=== PATIENT | female | born 1940 | race Caucasian/White ===

== ENCOUNTER → 2018-10-24 13:46 | Outpatient (CLI) | payer OTHER, SELFPAY | PROVIDERS: PCP Family Medicine; Visit Provider Family Medicine | DX: G56.21 Lesion of ulnar nerve, right upper limb (principal) | CPT/HCPCS: 95885; 95886; 95909 ==

== ENCOUNTER → 2019-07-08 12:35 | Outpatient (CLI) | payer MEDICARE, OTHER, SELFPAY ==
--- NOTE | 2019-07-08 | DI.MRI.S_ITS ---
PROCEDURE: MR CERVICAL SPINE WO/W CON INDICATIONS: CERVICALGIA TECHNIQUE: Noncontrast sagittal T1 spin echo and T2 fast spin echo, sagittal STIR, foraminal oblique sagittal T2 fast spin echo, axial gradient echo or T2 fast spin echo through the cervical spine. After the administration of contrast, axial and sagittal T1 spin echo with fat saturation through the cervical spine. COMPARISON: [facility], , C-SPINE WITHOUT CONTRAST, 04/06/2016, 10:53. FINDINGS: Image quality: Diagnostic Alignment and curvature: There is normal bony alignment. Marrow: Marrow is normal in overall signal, without suspicious enhancement. Spinal cord: Visualized spinal cord has normal size and signal. No cerebellar tonsillar herniation. No abnormal intramedullary enhancement. Paraspinous soft tissues: No paravertebral masses or suspicious enhancement. C2-3: No significant abnormality is seen. C3-4: Mild loss of disc height is seen. Loss of disc signal is seen. Moderate bilateral neural foraminal narrowing is seen. Mild central canal narrowing is seen. These imaging findings have progressed compared to the prior study. C4-5: Moderate loss of disc height is seen. Loss of disc signal is seen. Moderate generalized disc osteophyte complex is seen. Uncovertebral joint hypertrophy is seen at this level. Moderate to severe bilateral neural foraminal narrowing is seen. Mild central canal narrowing is seen. C5-6: At least moderate loss of disc height and disc signal are seen. Moderate to prominent disc osteophyte complex is seen. Moderate to prominent facet hypertrophy is seen. There is at least moderate right-sided and moderate to severe left-sided neural foraminal narrowing seen. Moderate central canal narrowing is seen, with associated mass effect upon the ventral spinal cord. These imaging findings have progressed compared to the prior study. C6-7: Moderate loss of disc height is seen. Loss of disc signal is seen. Moderate generalized disc osteophyte complex is seen. Uncovertebral joint hypertrophy is seen at this level. Moderate to severe bilateral neural foraminal narrowing is seen. Moderate central canal narrowing is seen, with associated mild mass effect upon the ventral spinal cord. These imaging findings have progressed compared to the prior study. C7-T1: No significant abnormality is seen. IMPRESSION: Multiple levels of cervical spine degenerative change are seen, which have progressed compared to 2016. No abnormal enhancement can be seen. Dictated by: Yossi Long M.D. on 07/08/2019 at 14:15 Approved by: Yossi Long M.D. on 07/08/2019 at 14:21
== END ==
PROVIDERS: PCP Family Medicine; Visit Provider Orthopaedic Surgery
DX: M54.2 Cervicalgia (principal)
CPT/HCPCS: 72156; A9579

== ENCOUNTER 2019-08-14 11:01 | Day surgery (SDC) | payer MEDICARE, OTHER, SELFPAY ==
[2019-08-13 08:12] VITALS: BMI 32.5
[2019-08-14] VITALS (18 sets, daily range): BP systolic 102–154; BP diastolic 63–91; PULSE 76–93; RESP 6–97; TEMP 35.9–36.6; O2SAT 10–99; BMI 32.5
--- NOTE | 2019-08-14 | DI.RAD.S_ITS ---
PROCEDURE: XR CERVICAL SPINE 2V OR 3V INDICATIONS: C4-5, C5-6 ACDF (MOBI-C) TECHNIQUE: 2 view(s) of the cervical spine were acquired. COMPARISON: None. FINDINGS: Spot fluoroscopic images demonstrating prosthetic discs at the C4-C5 and C5-C6 levels. There is expected intraoperative alignment Dictated by: Ronnie Read M.D. on 08/14/2019 at 14:32 Approved by: Ronnie Read M.D. on 08/14/2019 at 14:34
[2019-08-14] MEDS: LACTATED RINGERS 1,000 ML 42 ML IV ×2 (11:35→13:06)
--- NOTE | 2019-08-14 11:44 | PM.PREOP ---
Pre-operative Note Interval Note History & Physical reviewed/Exam performed by Physician: Yes Changes to H&P: No
--- NOTE | 2019-08-14 11:48 | PM.OP.1 ---
Operative Date/Time/Diagnoses Date of procedure: 08/14/19 Time of procedure: 13:22 Pre-op diagnosis: cervical stenosis with myelopathy Post-op diagnosis: same Procedure & Clinicians Procedure: C4-5, C5-6 anterior diskectomy an artificial disc replacement Use of microscope Same procedure as scheduled: Yes Indications: [age] year old female with intractable pain from cervical stenosis. They had failed conservative management and requested operative intervention. Risks and benefits of surgery were discussed and appropriate consents were obtained. Surgeon: Pritesh Melendez Lasting Machine Operator: Sussy León Operative Notes Findings: None Closure Type: primary Specimen(s): none sent Prosthetic devices, grafts, tissues, transplants, or devices: Hreo Mobi-C Estimated Blood Loss (mL): 20 Blood products transfused: none Procedure in detail: Patient was brought to the operating room and intubated on the table. A time-out was performed. Preoperative antibiotics were given. The neck was prepped and draped in the standard sterile fashion. Using a skin fold, we made a 3 cm oblique incision on the left side. We used Bovie to go through the platysma and then did a standard anterolateral blunt dissection down to the precervical fascia. Fascia was nicked and elevated up. A marker was placed and x-ray was taken for localization. We then subperiosteally elevated up the longus colli muscles. Self-retaining retractors were placed. Gilman pins were placed under x-ray guidance to be parallel to the endplates. We then brought in the microscope. A scalpel used to perform an annulotomy. We then used a combination of pituitaries and curettes and Kerrison to perform a complete anterior diskectomy at C4-5. We took down the PLL and used Kerrisons to remove posterior disc material and osteophytes. At the end we could from the nerve hook cephalad caudally and out the foramen and everything was opened. She had some bleeding from epidurals in the neural foramen. This was stopped with Gelfoam and thrombin. We distracted open with the parallel pasta press operator. We then used the horseshoes for sizing. We then used the trials. We then inserted a 15 x 13 x 5 size Mobi-C artificial disc replacement under fluoroscopic guidance for positioning. The traction was released and x-ray was checked again. We removed the machine hose cutter. The Gilman pin from C4 was moved down to C6. We then performed a complete diskectomy at C5-6 with scalpel, pituitaries, Kerrisons, curettes. We took down the PLL and removed the posterior osteophytes and disc material. Everything was open when we checked with a nerve hook. We then used the horseshoes for sizing. We then used the trials. We then inserted a 15 x 13 x 5 size Mobi-C artificial disc replacement under fluoroscopic guidance for positioning. The self-retaining retractors and Gilman pins were removed and final x-rays taken. The wound was irrigated. There was no bleeding. The carotid was beating nicely. The platysma was closed. The superficial was closed. The skin was closed. A sterile dressing was placed. They were then extubated and brought to recovery room with no complications. Complications: none Post-operative Condition: stable Disposition: PACU Plan for aftercare: Inpatient overnight
[2019-08-14] MEDS: CLINDAMYCIN 900 MG/50 ML PIGGYBACK 50 MG IV ×2 (11:58→20:23)
--- NOTE | 2019-08-14 12:21 | SUR.OPER ---
Supine on padded OR bed, head on gel donut, towel between shoulders, both arms padded and tucked at side, legs uncrossed, safety belt at thigh, tape over blanket over lower legs .
[2019-08-14] MEDS: SODIUM CHLORIDE 0.9% 1,000 ML, GENTAMICIN 80 MG IRR (12:29)
[2019-08-14] MEDS: BUPIVACAINE 0.25% W/ EPI 30 ML VIAL 60 ML INJ (12:29)
[2019-08-14] MEDS: THROMBIN (RECOMBINANT) 5,000 UNIT VIAL 5000 UNIT TOP (12:29)
[2019-08-14] MEDS: HYDROMORPHONE 2 MG INJ 0.5 MG IV ×8 (13:30→14:05)
[2019-08-14] MEDS: fentaNYL 100 MCG/2 ML INJ 50 MCG IV ×2 (14:12→14:26)
[2019-08-14] MEDS: TRAMADOL 50 MG TABLET PO (14:46)
--- NOTE | 2019-08-14 15:10 | SUR.PHASEI ---
pt has repeatedly had spo2 dips to as low as 75 while sleeping. this has been for the entire recovery and has not improved with increased level of consciousness. RT will evaluate for CPAP. pt states used to use but stopped when she lost weight
[2019-08-14] MEDS: GABAPENTIN 100 MG CAPSULE PO ×2 (17:14→21:41)
[2019-08-14] MEDS: LACTATED RINGERS 1,000 ML 125 ML IV (17:20)
[2019-08-14] MEDS: DOCUSATE 100 MG CAPSULE PO (21:40)
[2019-08-14] MEDS: SENNOSIDES 8.6 MG TABLET 17.2 MG PO (21:41)
[2019-08-14] MEDS: LOSARTAN 50 MG TABLET PO (21:43)
--- NOTE | 2019-08-14 22:48 | PC.NURSE ---
A&OX3. 96% on 1.5L NC, desats to 87%. VSS. LS: clear. pt able to tolerated full liquid diet. cervical dressing cdi. pain 01/19. passing gas. SBA to the BSC. pt able to urinate 200cc, bladder scan 20cc. IVF. call light in reach. oriented pt to room.
[2019-08-15] VITALS: BP 133/74; PULSE 85; RESP 16; TEMP 36.3; O2SAT 97
[2019-08-15] MEDS: CLINDAMYCIN 900 MG/50 ML PIGGYBACK 50 MG IV (03:03)
[2019-08-15] MEDS: LACTATED RINGERS 1,000 ML 125 ML IV (03:03)
[2019-08-15 05:00] VITALS: BP 145/88; PULSE 90; RESP 16; TEMP 36.2; O2SAT 97
[2019-08-15] MEDS: HYDROCODONE/ACET 5/325 TABLET 1 TAB PO ×2 (06:05→10:58)
--- NOTE | 2019-08-15 06:13 | PC.NURSE ---
Clinical Exercise Physiologist Note: 0045: Resting in bed. Vital signs stable. Assisted up to bathroom: steady on her feet. Dressing to neck is cdi, soft collar remains on. IV in place in lt AC with LR infusing at 125cc/hr. Pt denies pain at this time. 0545: Awake, assisted up to bathroom. Denies pain at this time. 0605: Pt states her neck is hurting. Medicated for pain with 1 [place] po. Assisted to reposition for comfort.
--- NOTE | 2019-08-15 07:02 | P.PN_ITS ---
Subjective Subjective Date Patient Seen: 08/15/19 Time Patient Seen: 07:02 Interval history: She is doing very well. Started having some pain in the neck recently and this is under better control with a [place]. Exam Vital Signs (past 8 hours): - 08/15/19 00:00 08/15/19 05:00 Temperature 97.4 F L 97.2 F L Pulse Rate 85 90 Respiratory Rate 16 16 Blood Pressure 133/74 145/88 H Pulse Oximetry 97 97 Oxygen Delivery Method Nasal Cannula Oxygen Flow Rate 2 Const Orientation: alert and oriented x3 Back/Spine/Pelvis Other: CDI. 5/5 motor both upper extremities except for 4/5 right deltoid with pain Assessment & Plan Post-op Postoperative Procedures: Procedures Operation Date: 08/14/19 12:15 Actual Procedures Side Surgeon p C45 & C56 anterior discectomy and artificial disc replacement Pritesh Melendez MD She is doing well. Mobilize with therapy and discharge home today. Quality VTE Deep Vein Thrombosis/Pulmonary Embolism Present on Admission: No
[2019-08-15 07:40] VITALS: BP 141/77; PULSE 85; RESP 16; TEMP 36.7; O2SAT 97
[2019-08-15] MEDS: AMLODIPINE 5 MG TABLET PO (08:30)
[2019-08-15] MEDS: DOCUSATE 100 MG CAPSULE PO (08:30)
[2019-08-15] MEDS: GABAPENTIN 100 MG CAPSULE PO (08:30)
[2019-08-15] MEDS: LOSARTAN 50 MG TABLET PO (08:30)
[2019-08-15] MEDS: PANTOPRAZOLE 20 MG TABLET PO (08:30)
[2019-08-15] MEDS: KETOROLAC 30 MG/ML VIAL IV (08:38)
[2019-08-15 09:59] VITALS: PULSE 78; RESP 16; O2SAT 97
[2019-08-15] MEDS: TRIAMTERENE/HCTZ 37.5/25 TABLET 0.5 CAP PO (10:59)
--- NOTE | 2019-08-15 11:20 | PT.IIE ---
Current Diagnoses Spinal stenosis, cervical region (08/14/19) Surgery Performed Operation Date: 08/14/19 12:15 Actual Procedures p C45 & C56 anterior discectomy and artificial disc replacement - Pritesh Melendez MD Surgical History (Last Updated 08/13/19 @ 08:46 by Corry Santillan, RN) History of bilateral carpal tunnel release (Acute) History of bilateral knee arthroplasty (Acute) History of incisional hernia repair (Acute 10/11/17) History of lumbar fusion (Acute 10/10/16) History of partial hysterectomy (Acute) Hx of appendectomy (Acute) Hx of bilateral breast reduction surgery (Acute) Hx of bladder repair surgery (Acute) Hx of blepharoplasty (Acute) Hx of cholecystectomy (Acute) Hx of hand surgery (Acute) Hx of resection of large bowel (Acute) S/P bilateral foot surgery (Acute) Medical History (Last Updated 08/13/19 @ 08:46 by Corry Santillan RN) Asthma (Acute) Diabetes (Acute) Elbow fracture, right (Acute) First degree AV block (Acute) Flexor tenosynovitis of finger (Acute) Goiter, nodular (Acute) HLD (hyperlipidemia) (Acute) HTN (hypertension) (Acute) Hypokalemia (Acute) Hyponatremia (Acute) IBS (irritable bowel syndrome) (Acute) Left wrist fracture (Acute) Lichen sclerosus (Acute) Osteoarthritis (Acute) Osteopenia (Acute) Radicular pain in right arm (Acute) Sciatica, right side (Acute) Scleroderma (Acute) Sleep apnea (Acute) Physical Therapy Inpatient Evaluation/Re-Eval M1 PT/OT-IP Prior Functional Status Start: 08/15/19 08:26 Freq: NEEDED Status: Active Protocol: Document 08/15/19 08:40 (Rec: 08/15/19 11:20 [email or web address]) Medical Review Prior Functional Status Medical History Reviewed Yes Communication no deficits noted. Able to make needs known Mobility and Gait Independent for home and community mobility w/o AD Activities of Daily Living and IADL's independent for all ADLs and IADLs Social History Household Members spouse Living Arrangements House Number of Floors (Floors) One Floor Number of Stairs To Enter/Railing? 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 They are for 58 years. M2 PT-IP Current Condition Start: 08/15/19 08:26 Freq: NEEDED Status: Active Protocol: Document 08/15/19 08:40 HH (Rec: 08/15/19 11:20 [email or web address]) Physical Therapy Current Condition Current Condition Evaluation Date 08/15/19 Treatment Diagnosis C45 & C56 anterior discectomy and artificial disc replacement Onset Date 08/14/19 Precautions Cervical Spine Precautions Soft Collar for Comfort,Rigid Collar,No Heavy Lifting,Log Roll Weight Bearing Status Weight Bearing Status Full Weight Bearing M3 PT-IP Subjective Start: 08/15/19 08:26 Freq: NEEDED Status: Active Protocol: Document 08/15/19 08:40 HH (Rec: 08/15/19 11:20 [email or web address]) Subjective Physical Therapy Visit Type Type Initial Evaluation Visit Start Time 08:40 Visit Stop Time 09:15 Total Visit Minutes 35 Number of CHILD SUPPORT OFFICER Visits 0 Physical Therapy Visit Comments Patient Comments Pt agreeable to mobilize with PT Patient Goals To return home Therapy Pain Assessment Pain When Pain Assessed During Mobility Pain Present Pain Present Pain Reported Location Neck Intensity 2 Scale Used Numeric (1 - 10) Description Aching Pain Management Techniques Apply Cold,Modification of Treatment,Re-positioning, Timing of Activity with Medications M4 PT-IP Mobility and Gait Start: 08/15/19 08:26 Freq: NEEDED Status: Active Protocol: Document 08/15/19 08:40 HH (Rec: 08/15/19 11:20 [email or web address]) PT-Bed Mobility Assessment Rolling Type of Rolling Roll to Left Level of Assist Standby Assistance Supine to Sit Supine to Sit Standby Assistance Scooting Scooting to Edge of Bed Independent Scooting Up and Down in Bed Independent PT-Transfer Assessment Sit to and From Stand Sit to and from Stand Standby Assistance,Use of Upper Extremities Equipment Transfer Assistive Device None Transfers Transfer Destination Bed,Chair Transfer Technique Stand Step Pivot Transfer Ability Level of Assist Standby Assistance,Use of Upper Extremities Comments Mobility Comments Pt's BP during session 151/74 - 168/83, HR 87-93. Pt was able to log roll and perform side push up to sit at EOB with SBA. Pt understands and able ot maintain all post op precautions. She stood up and amb to hallway for a total of 350 ft with SBA without FWW. She did c/o dizziness but it resolved as amb distance increases. Pt returned to her room chair with safe tranfer techniques. no sign of LOB noted. Gait Assessment Gait Gait Assistance Required: Standby Assistance Distance (Feet) 350 Able to Maintain Weight Bearing Status Yes During Gait Assistive Devices Assistive Device None Orthotic/Prosthetic Devices or Brace: Yes Gait Deviations General Gait Pattern Within Normal Limits Factors Limiting Gait Function Factors Limiting Gait Function Limited Range of Motion,Pain Comments Gait Comments see mobility comments Stair Climbing Assessment Evaluation Level of Assist On Stairs Standby Assistance Devices Stair Climbing Assistive Devices Left Railing Technique/Endurance Stair Climbing Direction Ascend and Descend Stair Climbing Technique Step Over Step Number of Steps Climbed 3 Query Text: Stair Climbing Set # Repetitions (reps) 2 PT-Balance Assessment Sitting Balance and Reactions Static Sitting Balance Ability Normal Dynamic Sitting Balance Ability Normal Standing Balance and Reactions Static Standing Balance Ability Normal Dynamic Standing Balance Ability Normal Device Used none M5 PT-IP Objective Assessments Start: 08/15/19 08:26 Freq: NEEDED Status: Active Protocol: Document 08/15/19 08:40 (Rec: 08/15/19 11:20 [email or web address]) Orientation Orientation/Cognition Level of Alertness Alert Orientation Name,Age,Birthday,Month,Date, Year,Day of Week,Place, Situation Language Function Ability No Deficits Noted Safety Awareness Understands Safety Issues Memory Description No Deficits Noted Gross Range of Motion Upper Extremity ROM Assessment Within Functional Limits Lower Extremity ROM Assessment Within Functional Limits Strength Upper Extremity Strength Assessment Right Impaired Shoulder 4/5 Elbow 4/5 Wrist 4/5 Hand 4/5 Lower Extremity Strength Assessment Within Functional Limits Comments Strength Comments R UE grossly weaker than L UE which is her baseline. Coordination Assessment Gross Coordination Gross Coordination WNL Sensation Assessment Sensation Gross Sensation WNL Muscle Tone Muscle Tone WNL Yes M6 PT-IP Treatment Start: 08/15/19 08:26 Freq: NEEDED Status: Active Protocol: Document 08/15/19 08:40 (Rec: 08/15/19 11:20 [email or web address]) Physical Therapy Treatment Education Education Provided Precautions,Weight Bearing Status,Post-Op Packet,Safety Brace Education [place],Patient M7 PT-IP Assessment and Plan Start: 08/15/19 08:26 Freq: NEEDED Status: Active Protocol: Document 08/15/19 08:40 (Rec: 08/15/19 11:20 [email or web address]) PT Summary Assessment and Plan Potential Rehabilitation Potential Excellent Status of Condition at Evaluation Stable Summary Impairments Pain,ROM,Strength Progress Towards Goals Safe For Discharge Assessment Summary Pt is a low complexity s/p C45 & C56 anterior discectomy and artificial disc replacement from yesterday. Pt did very well for mobility assessment who is able to recall all precautions and used log roll for bed mobility. Pt overall did amb and stair climbing with SBA/ I without AD. Pt is safe to go home with spouse assistance at this point. Frequency of Treatment Frequency Of Treatment Discharge Recommendations To Nursing Amount of Assist Needed Standby Assistance Discharge Recommendations PT Discharge Recommendations Home with Assistance
--- NOTE | 2019-08-15 12:01 | OT.IP.TRT ---
Current Diagnoses Spinal stenosis, cervical region (08/14/19) Surgery Performed Operation Date: 08/14/19 12:15 Actual Procedures p C45 & C56 anterior discectomy and artificial disc replacement - Pritesh Melendez MD Occupational Therapy Treatment Note M2 OT-IP Current Condition Start: 08/15/19 11:42 Freq: Status: Active Protocol: Document 08/15/19 915 [facility] (Rec: 08/15/19 12:01 [facility] [id number]) Occupational Therapy Current Condition Current Condition Evaluation Date 08/15/19 Treatment Diagnosis C4-5, C5-6 anterior diskectomy and artificial disc . Diagnosis Onset Date 08/14/19 Post Operative Precautions Cervical Spine Precautions Soft Collar for Comfort,No Heavy Lifting,Log Roll Weight Bearing Status Weight Bearing Status Weight Bear as Tolerated M3 OT- IP Subjective and Pain Start: 08/15/19 11:42 Freq: Status: Active Protocol: Document 08/15/19 11:43 [facility] (Rec: 08/15/19 12:01 [facility] [id number]) OT- Subjective Occupational Therapy Visit Type Type Initial Evaluation Visit Start Time 09:15 Visit Stop Time 09:40 Total Visit Minutes 25 Occupational Therapy Visit Comments Patient Comments Pt agreeable to get up for OT eval. Patient/Caregiver Goals To go home. OT Pain Assessment Pain When Pain Assessed At Rest Pain Present Pain Present Denied Pain M4 OT- IP ADL's Start: 08/15/19 11:42 Freq: Status: Active Protocol: Document 08/15/19 11:43 [facility] (Rec: 08/15/19 12:01 [facility] [id number]) OT ADL-Grooming General Evaluation Grooming Ability Independent OT ADL-Oral Care General Eval Oral Care Ability Independent OT ADL-Dressing General Eval Upper Body Dressing Ability Independent Lower Body Dressing Ability Standby Assistance Comments OT Dressing Comments PT SBA while able to kasey underwear and pants while standing, encouraged pt to sit for LB dressing needs. OT ADL-Toileting General Evaluation Toileting Ability Independent OT ADL-Bathing Comments OT Bathing Comments Pt states will showering at home. Pt states shower too small for a stool , but will be able to stand by for any needs. M6 OT- IP Functional Cognition Start: 08/15/19 11:42 Freq: Status: Active Protocol: Document 08/15/19 11:43 [facility] (Rec: 08/15/19 12:01 [facility] [id number]) Cognitive Factors Limiting Selfcare Function Cognitive Ability Level of Alertness Alert Patient Orientation Name,Age,Birthday,Month,Date, Year,Day of Week,Place, Situation Attention Span Ability Capable of Focused Attention, Capable of Sustained Attention Ability to Follow Commands Able to Follow Multi-Step Commands Memory Description No Deficits Noted Safety Awareness Underestimates Need for Assistance Cognitive Comments Cognitive Assessment Comments NO cognitive impairments, mainly just cues to slow down. M7 OT- IP Mobility and Balance Start: 08/15/19 11:42 Freq: Status: Active Protocol: Document 08/15/19 11:43 [facility] (Rec: 08/15/19 12:01 [facility] [id number]) OT-Transfer Assessment Sit to and From Stand Sit to and from Stand Independent Transfers Transfer Ability Standby Assistance Comments Mobility Comments Distant SBA while walking in the room with no device, vc to slow down and be careful not to twist/turn her neck when talking to people. OT- Balance Assessment Sitting Balance and Reactions Static Sitting Balance Ability Normal Dynamic Sitting Balance Ability Normal Standing Balance and Reactions Static Standing Balance Ability Normal Dynamic Standing Balance Ability Good M8 OT- IP Objective Assessments Start: 08/15/19 11:42 Freq: Status: Active Protocol: Document 08/15/19 11:43 [facility] (Rec: 08/15/19 12:01 [facility] [id number]) OT Gross Range of Motion Upper Extremity Range of Motion Assessment Within Functional Limits ROM Impairments Pt now almost has all AROM for RUE, pt now able to comb her hair. M9 OT- IP Assessment and Plan Start: 08/15/19 11:42 Freq: Status: Active Protocol: Document 08/15/19 11:43 [facility] (Rec: 08/15/19 12:01 [facility] [id number]) OT Summary Assessment and Plan Potential Rehabilitation Potential Excellent Analytic Complexity at Evaluation Low Summary Progress Towards Goals Safe For Discharge Assessment Summary Pt low complexity, doing well, and to go home today with 's support. Mainly just needing vc to slow down. Goals Days to Meet Goals 1 Frequency of Treatment Frequency Of Treatment Once a Day Treatment Plan OT Treatment Plan Discharge Planning Discharge Recommendations OT Discharge Recommendations Home with Assistance
--- NOTE | 2019-08-15 12:11 | PC.NURSE ---
discharge: Pt feels ready to d/c home. Seen by PT/OT and received their instructions. Seen by Md and received his instructions. Has been up amb w/out assist devices. Po pain meds have been effective. Did get a dose of toradol which she said helped. Has been voiding w/out diff. Diet tolerated without problems. Spouse given rx and they have been filled. Given d/c instruction sheets and reviewed. Reviewed wound care. Questions answered. Pt d/c home via auto w/spouse.
== END 2019-08-15 11:30 ==
LOC: AC 08-15 10:30 → OR 08-15 12:39
PROVIDERS: PCP Family Medicine; Visit Provider Orthopaedic Surgery
PROC: (CPT 22856; principal; 2019-08-14 12:15)
DX: M48.02 Spinal stenosis, cervical region (principal); I10 Essential (primary) hypertension; E11.9 Type 2 diabetes mellitus without complications; E66.9 Obesity, unspecified; J45.909 Unspecified asthma, uncomplicated; M47.12 Other spondylosis with myelopathy, cervical region; Z68.32 Body mass index [BMI] 32.0-32.9, adult; Z79.84 Long term (current) use of oral hypoglycemic drugs
CPT/HCPCS: 22856; 22858; 72040; 76000; 82962; 97116; 97161; 97165; 97530; C1776; J0330; J1100; J1170; J1885; J2405; J2704; J3010

== ENCOUNTER → 2020-05-17 09:39 | Outpatient (CLI) | payer MEDICARE, OTHER, SELFPAY ==
[2020-05-06 08:08] VITALS: BMI 32.5
[2020-05-18 13:58] LABS: COVID19 Sendout NOT DETECTED (Not Detect)
== END ==
PROVIDERS: PCP Family Medicine; Visit Provider Physician Assistant
DX: Z01.812 Encounter for preprocedural laboratory examination (principal)
CPT/HCPCS: 87635

== ENCOUNTER 2020-05-20 11:24 | Inpatient (IN) | payer MEDICARE, OTHER, SELFPAY ==
[2020-05-06 08:08] VITALS: BMI 32.5
[2020-05-18 14:00] VITALS: BMI 30.3
[2020-05-20] VITALS (13 sets, daily range): BP systolic 112–154; BP diastolic 62–82; PULSE 71–89; RESP 12–26; TEMP 35.7–36.3; O2SAT 94–98; BMI 30.2
--- NOTE | 2020-05-20 | DI.RAD.S_ITS ---
PROCEDURE: XR CERVICAL SPINE 2V OR 3V INDICATIONS: C4-5, C5-6 REMOVAL OF OLD REPLACEMENT CAGES TECHNIQUE: 2 view(s) of the cervical spine were acquired. COMPARISON: [facility], [facility], XR CERVICAL SPINE 2 OR 3 VIEWS, 11/19/2019, 9:57. [facility], [facility], XR CERVICAL SPINE 2 OR 3 VIEWS, 04/28/2020, 10:58. [facility], [place], XR CERVICAL SPINE 2V OR 3V, 08/14/2019, 12:25. FINDINGS: Bones: Postsurgical changes compatible with placement of C4-C5 and C5-C6 ACDF. There is normal alignment of the visualized fused and nonfused vertebral body segments. Soft tissues: No prevertebral soft tissue swelling. IMPRESSION: Expected postsurgical change for C4-C5 and C5-C6 ACDF. Dictated by: Shalonda Aguilar MD, PhD on 05/20/2020 at 14:44 Approved by: Shalonda Aguilar MD, PhD on 05/20/2020 at 14:47
--- NOTE | 2020-05-20 12:08 | PM.PREOP ---
Pre-operative Note COVID-19 COVID-19 status: Negative Result date/Date tested (Pos, Neg/Pending): 05/17/20 Interval Note History & Physical reviewed/Exam performed by Physician: Yes Changes to H&P: Yes H&P completed within 30 days and has changed as indicated here:: We are operating on the C5-6 level. She still has a natural disc at C6-7.
[2020-05-20] MEDS: CLINDAMYCIN 900 MG/50 ML PIGGYBACK 50 MG IV ×2 (13:03→21:29)
--- NOTE | 2020-05-20 13:18 | SUR.OPER ---
Supine, head on gel donut. Arms padded with gel pads, tucked at sides, towel roll under shoulders. Safety belt at thigh. Legs uncrossed.
[2020-05-20] MEDS: THROMBIN (RECOMBINANT) 5,000 UNIT VIAL 5000 UNIT TOP (13:43)
[2020-05-20] MEDS: BUPIVACAINE 0.25% W/ EPI 30 ML VIAL INJ (13:44)
[2020-05-20] MEDS: LACTATED RINGERS 1,000 ML 42 ML IV ×2 (14:07→14:37)
--- NOTE | 2020-05-20 14:07 | P.OP_ITS ---
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 It was felt that this require revision surgery and conversion to fusion for its instability. Risks and benefits of surgery discussed and appropriate consent obtained. Surgeon: Pritesh Melendez [employer] Technician: Edelmira Abdi Anesthesia Type: General Operative Notes Findings: Loose hardware of C4-5 and C5-6 disc replacements Closure Type: primary Specimen(s): none sent Prosthetic devices, grafts, tissues, transplants, or devices: Hero Mobi-C removed, ABIGAIL-C implanted Estimated Blood Loss (mL): 5 Procedure in detail: Patient was brought to the operating room and intubated on the table. A time-out was performed. Preoperative antibiotics were given. The neck was prepped and draped in the standard sterile fashion. Using a skin fold, we used her old 3 cm left-sided oblique incision. We used Bovie to go through the platysma and then did a standard anterolateral blunt dissection through the scar down to the precervical fascia. Fascia was nicked and elevated up. A marker was placed and x-ray was taken for localization. We then subperiosteally elevated up the longus colli muscles around C5-6. Self- retaining retractors were placed. [place] pins were placed. The superior endplate of the disc replacement was grossly loose and came out easily when we grabbed it. The inferior endplate was loose as well and it came out easily. We then used a curette to remove all of the scar tissue until we came down to the bone. The endplates were decorticated with the curettes. She had a fair amount of collapse on the inferior endplate of the C5 vertebral body but this was cleared back to bone. We then trialed our spacer. A small stab incision was made over the left anterior iliac crest. A Flywheel Sportsshidi needle was advanced into the pelvis and 2 mL of bone marrow was aspirated. We then used the trials. We then packed a 15 x 12 x 6 mm ABIGAIL-C cage with Primagen bone graft and the iliac crest harvest. The cage was placed under fluoroscopic guidance. We then placed our two locking plates. The self- retaining retractors and [place] pins were removed. X-rays were taken for confirmation. The C4-5 disc replacement appear to have moved more since her last x-ray and we went up to this level. The longus coli were elevated and the disc replacement was exposed. The superior end plate was grossly loose on this level as well. I felt that this had to be converted to a fusion as this was unstable even though we had not initially plan on doing this. We distracted and remove the superior endplate of the disc replacement easily. We did have to use an osteotome to free up the inferior endplate but this was then removed. We used a curette to remove the old scar tissue and decorticate the bone. We then trialed and placed another 15 x 12 x 6 mm cage with bone graft into the C4-5 space for the anterior fusion at this level. Final x-rays were taken. The wound was irrigated. There was no bleeding. The carotid was beating nicely. The platysma was closed. The superficial was closed. The skin was closed. A sterile dressing was placed. They were then extubated and brought to recovery room with no complications. Complications: none Post-operative Condition: stable Disposition: PACU Plan for aftercare: Inpatient. Overnight admission. Plan to discharge home tomorrow.
[2020-05-20] MEDS: fentaNYL 100 MCG/2 ML INJ IV ×2 (14:25→14:30)
[2020-05-20] MEDS: HYDROMORPHONE 2 MG INJ IV ×4 (14:35→14:50)
[2020-05-20] MEDS: LACTATED RINGERS 1,000 ML 125 ML IV (16:19)
[2020-05-20] MEDS: diphenhydrAMINE 25 MG TABLET PO (16:42)
[2020-05-20] MEDS: HYDROCODONE/ACET 5/325 TABLET 1 TAB PO (16:47)
[2020-05-20] MEDS: LOSARTAN 50 MG TABLET PO (21:29)
[2020-05-20] MEDS: GABAPENTIN 300 MG CAPSULE PO (21:29)
[2020-05-20] MEDS: SENNOSIDES 8.6 MG TABLET 17.2 MG PO (21:29)
[2020-05-20] MEDS: BENZOCAINE/MENTHOL 1 LOZ PKT 1 EACH PO (21:29)
[2020-05-20] MEDS: DOCUSATE 100 MG CAPSULE PO (21:29)
--- NOTE | 2020-05-20 23:35 | PC.NURSE ---
pt ambulated in hallways. RA 96%. dressing cdi. soft collar on. no problem swallowing. PIV. SBA to the BR. gave norco once this shift. cms+. cepacol for sore throat. call light in reach. bed alarm active.
[2020-05-21] VITALS: BP 114/63; PULSE 85; RESP 16; TEMP 36.8; O2SAT 97
[2020-05-21] MEDS: LACTATED RINGERS 1,000 ML 125 ML IV (00:46)
[2020-05-21 04:16] VITALS: BP 156/71; PULSE 83; RESP 16; TEMP 36.2
[2020-05-21] MEDS: CLINDAMYCIN 900 MG/50 ML PIGGYBACK 50 MG IV (04:34)
[2020-05-21] MEDS: ACETAMINOPHEN 325 MG TABLET 650 MG PO ×2 (04:39→09:49)
[2020-05-21 07:30] VITALS: BP 155/71; PULSE 78; RESP 16; TEMP 36.6; O2SAT 97
--- NOTE | 2020-05-21 07:37 | PM.PNPO.1 ---
Subjective Subjective Date Patient Seen: 05/21/20 Time Patient Seen: 07:37 Interval history: She is doing well. Arms feel fine. Little neck pain. Doing well on tramadol. Exam Vital Signs (past 8 hours): - 05/21/20 00:00 05/21/20 04:16 Temperature 98.2 F 97.2 F L Pulse Rate 85 83 Respiratory Rate 16 16 Blood Pressure 114/63 156/71 H Pulse Oximetry 97 Oxygen Delivery Method Room Air Oxygen Flow Rate 0 Const Orientation: alert and oriented x3 Back/Spine/Pelvis Other: CDI. 5/5 motor both upper extremities. Assessment & Plan Post-op Postoperative Procedures: Procedures Operation Date: 05/20/20 13:15 Actual Procedures Side Surgeon p Removal C67 artificial disc replacement & conversion to anterior cervical fusion,DISC REPLACEMENT C4-C5 Not Applicable Pritesh Melendez MD I again explained to her that we had to change out both of the discs to fusions has they were both loose. She was disappointed by this but understands the necessity. She is doing quite well today. Plan to discharge home. Quality VTE Deep Vein Thrombosis/Pulmonary Embolism Present on Admission: No
[2020-05-21] MEDS: LOSARTAN 50 MG TABLET PO (09:46)
[2020-05-21] MEDS: MELOXICAM 7.5 MG TABLET 15 MG PO (09:46)
[2020-05-21] MEDS: GABAPENTIN 300 MG CAPSULE PO (09:46)
[2020-05-21] MEDS: DOCUSATE 100 MG CAPSULE PO (09:47)
[2020-05-21] MEDS: AMLODIPINE 5 MG TABLET PO (09:47)
[2020-05-21] MEDS: TRIAMTERENE/HCTZ 37.5/25 TABLET 0.5 CAP PO (09:47)
[2020-05-21] MEDS: PANTOPRAZOLE 20 MG TABLET PO (09:47)
--- NOTE | 2020-05-21 09:47 | OT.IP.EVAL ---
Current Diagnoses Breakdown (mechanical) of internal fixation device of vertebrae, initial encounter (05/20/20) Other specified postprocedural states (05/20/20) Surgery Performed Operation Date: 05/20/20 13:15 Actual Procedures p Removal C67 artificial disc replacement & conversion to anterior cervical fusion,DISC REPLACEMENT C4-C5(Not Applicable) - Pritesh Melendez MD Past Medical History (Last Updated 05/18/20 @ 14:46 by Corry Santillan, RN) Asthma (Acute) Diabetes (Acute) Elbow fracture, right (Acute) First degree AV block (Acute) Flexor tenosynovitis of finger (Acute) Goiter, nodular (Acute) HLD (hyperlipidemia) (Acute) HTN (hypertension) (Acute) Hypokalemia (Acute) Hyponatremia (Acute) IBS (irritable bowel syndrome) (Acute) Left wrist fracture (Acute) Lichen sclerosus (Acute) Osteoarthritis (Acute) Osteopenia (Acute) Radicular pain in right arm (Acute) Sciatica, right side (Acute) Scleroderma (Acute) Sleep apnea (Acute) Surgical History (Last Updated 05/18/20 @ 14:41 by Corry Santillan RN) History of bilateral carpal tunnel release (Acute) History of bilateral knee arthroplasty (Acute) History of cataract extraction (Acute) History of cervical spinal surgery (Acute 08/14/19) History of incisional hernia repair (Acute 10/11/17) History of lumbar fusion (Acute 10/10/16) History of partial hysterectomy (Acute) Hx of appendectomy (Acute) Hx of bilateral breast reduction surgery (Acute) Hx of bladder repair surgery (Acute) Hx of blepharoplasty (Acute) Hx of cholecystectomy (Acute) Hx of hand surgery (Acute 2019) Hx of resection of large bowel (Acute) S/P bilateral foot surgery (Acute) Occupational Therapy Inpatient Evaluation/Re-Eval M1 PT/OT-IP Prior Functional Status Start: 05/21/20 08:18 Freq: NEEDED Status: Active Protocol: Document 05/21/20 13:03 CGR (Rec: 05/21/20 13:15 CGR [email or web address]) Medical Review Prior Functional Status Medical History Reviewed Yes Diet/Fluid Consistency Regular Communication Pt is an effective verbal communicator. Mobility and Gait independent without AD. Activities of Daily Living and IADL's independent for all ADLs and IADLs. Social History Household Members spouse Living Arrangements Mobile home Number of Floors (Floors) One Floor Number of Stairs To Enter/Railing? 3 [place] with L rail Home Environment Standard Height Toilet,Walk in Shower,Tub/Shower Home Equipment Straight Cane Employment Status Retired Additional Social History Comment Pt lives with his in [place] and her is now fully recovered from shingles. He will be able to assist pt as needed. Pt also has a son and friends live closeby to assist if needed. Pt had ACDF end of last year but cont to have neck pain and arm weakness. M2 OT-IP Current Condition Start: 05/21/20 13:02 Freq: Status: Active Protocol: Document 05/21/20 13:03 CGR (Rec: 05/21/20 13:15 CGR [email or web address]) Occupational Therapy Current Condition Current Condition Evaluation Date 05/21/20 Treatment Diagnosis C4-C6 ACDF and removal of old hardware Diagnosis Onset Date 05/20/20 Post Operative Precautions Cervical Spine Precautions Soft Collar for Comfort,No Heavy Lifting,Log Roll M3 OT- IP Subjective and Pain Start: 05/21/20 13:02 Freq: Status: Active Protocol: Document 05/21/20 13:03 CGR (Rec: 05/21/20 13:15 CGR [email or web address]) OT- Subjective Occupational Therapy Visit Type Type Initial Evaluation Visit Start Time 09:26 Visit Stop Time 09:47 Total Visit Minutes 21 OT Pain Assessment Pain When Pain Assessed At Rest Pain Present Pain Present Pain Reported Location Neck Intensity 2 Scale Used Numeric (0 - 10) Management Techniques Modification of Treatment, Timing of Activity with Medications M4 OT- IP ADL's Start: 05/21/20 13:02 Freq: Status: Active Protocol: Document 05/21/20 13:03 CGR (Rec: 05/21/20 13:15 CGR [email or web address]) OT [id number] Comments OT Self-Feeding Comments not meal time OT ADL-Grooming General Evaluation Grooming Ability Independent Areas Needing Assistance Face Washing OT ADL-Oral Care Comments Oral Care Comments not performed OT ADL-Dressing General Eval Lower Body Dressing Ability Standby Assistance Areas Needing Assistance Socks Comments OT Dressing Comments Pt able to bring foot to knee. OT ADL-Toileting General Evaluation Toileting Ability Independent Devices Toileting Assistive Devices Grab Bars OT ADL-Bathing Comments OT Bathing Comments not performed M5 OT- IP IADL's Start: 05/21/20 13:02 Freq: Status: Active Protocol: Document 05/21/20 13:03 CGR (Rec: 05/21/20 13:15 CGR [email or web address]) OT-Instrumental Activities of Daily Living Deficits IADL Deficits Identified No Deficits Home Safety Awareness Awareness of Need for Assistance at Home Good Awareness Ability to Problem Solve Emergency Able to Problem Solve Situations Medication Management Medication Management No Deficits Identified Money Management Money Management No Deficits Identified Meal Preparation Meal Preparation No Deficits Identified Loader Loader No Deficits Identified Driving Driving Comments Pt understand that she should not be driving till cleared by MD. M6 OT- IP Functional Cognition Start: 05/21/20 13:02 Freq: Status: Active Protocol: Document 05/21/20 13:03 CGR (Rec: 05/21/20 13:15 CGR [email or web address]) Cognitive Factors Limiting Selfcare Function Cognitive Ability Level of Alertness Alert Patient Orientation Name,Age,Birthday,Month,Date, Year,Day of Week,Place, Situation Attention Span Ability Capable of Focused Attention, Capable of Sustained Attention Ability to Follow Commands Able to Follow Multi-Step Commands Memory Description No Deficits Noted Safety Awareness No Deficits Noted Problem Solving Ability No deficits Noted OT- Vision and Hearing OT- Hearing Assessment OT- Hearing Assessment WFL OT- Vision Assessment Visual Acuity Glasses All The Time Visual Attentiveness WFL Occular Pursuits WFL Visual Convergence WFL M7 OT- IP Mobility and Balance Start: 05/21/20 13:02 Freq: Status: Active Protocol: Document 05/21/20 13:03 CGR (Rec: 05/21/20 13:15 CGR [email or web address]) OT- Bed Mobility Assessment Rolling Type of Rolling Log Rolling Level of Assistance Independent Supine to Sit Supine to Sit Assist Independent Sit to Supine Sit to Supine Assist Independent Scooting Scooting to Edge of Bed Independent OT-Transfer Assessment Sit to and From Stand Sit to and from Stand Standby Assistance Transfers Transfer Ability Standby Assistance Technique Transfer Destination Bed,Chair,Toilet Transfer Technique Stand Step Pivot Devices Transfer Assistive Devices Gait Belt,Front Wheeled Walker OT- Gait Assessment Gait Gait Assistance Required: Standby Assistance Assistive Devices Assistive Device Gait Belt,Front Wheeled Walker OT- Balance Assessment Sitting Balance and Reactions Static Sitting Balance Ability Normal Dynamic Sitting Balance Ability Good Standing Balance and Reactions Static Standing Balance Ability Normal Dynamic Standing Balance Ability Good M8 OT- IP Objective Assessments Start: 05/21/20 13:02 Freq: Status: Active Protocol: Document 05/21/20 13:03 CGR (Rec: 05/21/20 13:15 CGR [email or web address]) OT Gross Range of Motion Upper Extremity Range of Motion Assessment Within Functional Limits OT Strength Upper Extremity Strength Assessment Within Functional Limits OT- Coordination Assessment Upper Extremity Finger to Nose Test Within Functional Limits Finger Tapping Test Within Functional Limits OT-Muscle Tone Assessment Muscle Tone WNL Yes OT Sensation Assessment Edema Edema Absent M9 OT- IP Assessment and Plan Start: 05/21/20 13:02 Freq: Status: Active Protocol: Document 05/21/20 13:03 CGR (Rec: 05/21/20 13:15 CGR [email or web address]) OT Summary Assessment and Plan Potential Rehabilitation Potential Excellent Analytic Complexity at Evaluation Low Summary Progress Towards Goals Safe For Discharge,Goals Met Assessment Summary Pt presents as a low complexity evalution s/p cervical revision. Pt is at her baseline. Educated pt on cervical precautions. Pt states understanding. Safe for d/c home with assist. Frequency of Treatment Frequency Of Treatment Discharge Discharge Recommendations OT Discharge Recommendations Home Transportation Needs at Discharge Private Vehicle
--- NOTE | 2020-05-21 10:32 | PT.IIE ---
Current Diagnoses Breakdown (mechanical) of internal fixation device of vertebrae, initial encounter (05/20/20) Other specified postprocedural states (05/20/20) Surgery Performed Operation Date: 05/20/20 13:15 Actual Procedures p Removal C67 artificial disc replacement & conversion to anterior cervical fusion,DISC REPLACEMENT C4-C5(Not Applicable) - Pritesh Melendez MD Surgical History (Last Updated 05/18/20 @ 14:41 by Corry Santillan, RN) History of bilateral carpal tunnel release (Acute) History of bilateral knee arthroplasty (Acute) History of cataract extraction (Acute) History of cervical spinal surgery (Acute 08/14/19) History of incisional hernia repair (Acute 10/11/17) History of lumbar fusion (Acute 10/10/16) History of partial hysterectomy (Acute) Hx of appendectomy (Acute) Hx of bilateral breast reduction surgery (Acute) Hx of bladder repair surgery (Acute) Hx of blepharoplasty (Acute) Hx of cholecystectomy (Acute) Hx of hand surgery (Acute 2019) Hx of resection of large bowel (Acute) S/P bilateral foot surgery (Acute) Medical History (Last Updated 05/18/20 @ 14:46 by Corry Santillan, JUN) Asthma (Acute) Diabetes (Acute) Elbow fracture, right (Acute) First degree AV block (Acute) Flexor tenosynovitis of finger (Acute) Goiter, nodular (Acute) HLD (hyperlipidemia) (Acute) HTN (hypertension) (Acute) Hypokalemia (Acute) Hyponatremia (Acute) IBS (irritable bowel syndrome) (Acute) Left wrist fracture (Acute) Lichen sclerosus (Acute) Osteoarthritis (Acute) Osteopenia (Acute) Radicular pain in right arm (Acute) Sciatica, right side (Acute) Scleroderma (Acute) Sleep apnea (Acute) Physical Therapy Inpatient Evaluation/Re-Eval M1 PT/OT-IP Prior Functional Status Start: 05/21/20 08:18 Freq: NEEDED Status: Active Protocol: Document 05/21/20 08:53 HH (Rec: 05/21/20 10:32 [email or web address]) Medical Review Prior Functional Status Medical History Reviewed Yes Diet/Fluid Consistency Regular Communication no deficits noted. able to make needs known Mobility and Gait independent without AD. Activities of Daily Living and IADL's independent for all ADLs and IADLs. CG for his for a few months d/t shingles. Social History Household Members spouse Living Arrangements Mobile home Number of Floors (Floors) One Floor Number of Stairs To Enter/Railing? 3 [place] with L rail Home Environment Standard Height Toilet,Walk in Shower,Tub/Shower Home Equipment Straight Cane Employment Status Retired Additional Social History Comment Pt lives with his in [place] and her is now fully recovered from shingles. He will be able to assist pt as needed. Pt also has a son and friends live closeby to assist if needed. Pt had ACDF end of last year but cont to have neck pain and arm weakness. M2 PT-IP Current Condition Start: 05/21/20 08:18 Freq: NEEDED Status: Active Protocol: Document 05/21/20 08:53 HH (Rec: 05/21/20 10:32 [email or web address]) Physical Therapy Current Condition Current Condition Evaluation Date 05/21/20 Treatment Diagnosis Revision of C4-6 ACDF (disc replacement) Onset Date 05/20/20 Precautions Cervical Spine Precautions Soft Collar for Comfort,Rigid Collar,No Heavy Lifting,Log Roll Weight Bearing Status Weight Bearing Status Full Weight Bearing M3 PT-IP Subjective Start: 05/21/20 08:18 Freq: NEEDED Status: Active Protocol: Document 05/21/20 08:53 HH (Rec: 05/21/20 10:32 [email or web address]) Subjective Physical Therapy Visit Type Type Initial Evaluation Visit Start Time 08:53 Visit Stop Time 09:10 Total Visit Minutes 17 Notes at bedside Physical Therapy Visit Comments Patient Comments Im doing better this time. Patient Goals to return home with . Therapy Pain Assessment Pain When Pain Assessed During Mobility Pain Present Pain Present Pain Reported Location Neck Intensity 2 Scale Used Numeric (0 - 10) Description Aching Pain Management Techniques Timing of Activity with Medications M4 PT-IP Mobility and Gait Start: 05/21/20 08:18 Freq: NEEDED Status: Active Protocol: Document 05/21/20 08:53 HH (Rec: 05/21/20 10:32 [email or web address]) PT-Transfer Assessment Sit to and From Stand Sit to and from Stand Independent Equipment Transfer Assistive Device Gait Belt Orthotic/Prosthetic Devices or Brace: Yes Transfers Transfer Destination Chair Transfer Technique Stand Step Pivot Transfer Ability Level of Assist Independent Comments Mobility Comments Pt sitting in chair upon PT arrival. at bedside and no discomfort noted. She recalled all 3/3 precautions and understand how to log roll for bed mobility. She then stood up indepedently without using UEs to push off. She walked to sink counter to demonstrate kasey/doff cervical collar without need of instruction. She then amb from her room to end of [facility] for stair climbing. After that, pt amb back to her room and sat comfortably in chair. No discomfort noted. safe for d/c Gait Assessment Gait Gait Assistance Required: Independent Distance (Feet) 460 Able to Maintain Weight Bearing Status Yes During Gait Assistive Devices Assistive Device None,Gait Belt Orthotic/Prosthetic Devices or Brace: Yes Gait Deviations General Gait Pattern Within Normal Limits Factors Limiting Gait Function Factors Limiting Gait Function Limited Range of Motion,Pain Comments Gait Comments see mobility comments. no deficits noted. Stair Climbing Assessment Evaluation Level of Assist On Stairs Standby Assistance Devices Stair Climbing Assistive Devices Left Railing Technique/Endurance Stair Climbing Direction Ascend and Descend Stair Climbing Technique Step Over Step Number of Steps Climbed 3 Query Text: Stair Climbing Set # Repetitions (reps) 2 Comments Stair Climbing Comments step over pattern with R rail. no deficits noted. PT-Balance Assessment Sitting Balance and Reactions Static Sitting Balance Ability Normal Dynamic Sitting Balance Ability Normal Standing Balance and Reactions Static Standing Balance Ability Normal Dynamic Standing Balance Ability Normal M5 PT-IP Objective Assessments Start: 05/21/20 08:18 Freq: NEEDED Status: Active Protocol: Document 05/21/20 08:53 (Rec: 05/21/20 10:32 [email or web address]) Orientation Orientation/Cognition Level of Alertness Alert Orientation Name,Age,Birthday,Month,Date, Year,Day of Week,Place, Situation Language Function Ability No Deficits Noted Safety Awareness Understands Safety Issues Memory Description No Deficits Noted Gross Range of Motion Upper Extremity ROM Assessment Bilaterally Impaired Impairments pt has difficulty to reach full shoulder flexion and abduction d/t soreness at neck but she reports thats her baseline Lower Extremity ROM Assessment Within Functional Limits Strength Upper Extremity Strength Assessment Left Impaired Shoulder 4-/5 Elbow 5/5 Wrist 5/5 Hand 4/5 Lower Extremity Strength Assessment Within Functional Limits Comments Strength Comments OA in B hands slight weakness noted on L shoulder but pt stated it is better than prior to sx. Coordination Assessment Gross Coordination Gross Coordination WNL Sensation Assessment Sensation Gross Sensation Right UE Impaired,Left UE Impaired Light Touch Impaired Proprioception (Position) Intact Sensation Description Numbness,Tingling Comments Sensation Comments L 5th finger= decreased sensation to LT R 5th finger= sligth tinling and numbness. Muscle Tone Muscle Tone WNL Yes M6 PT-IP Treatment Start: 05/21/20 08:18 Freq: NEEDED Status: Active Protocol: Document 05/21/20 08:53 (Rec: 05/21/20 10:32 [email or web address]) Physical Therapy Treatment Education Education Provided Precautions,Weight Bearing Status,Post-Op Packet,Safety Brace Education [place],Patient, Caregiver M7 PT-IP Assessment and Plan Start: 05/21/20 08:18 Freq: NEEDED Status: Active Protocol: Document 05/21/20 08:53 HH (Rec: 05/21/20 10:32 [email or web address]) PT Summary Assessment and Plan Potential Rehabilitation Potential Excellent Status of Condition at Evaluation Stable Summary Impairments Pain,ROM Progress Towards Goals Safe For Discharge Assessment Summary This is a low complexity evaluation only for this 79yo female s/p POD revision of C4- C6 ACDF for disc replacement. Pt was independent for all mobility and functional activities prior to sx. Upon assessment, pt has very good understanding of post op precautions and safety awareness. She demonstrates baseline mobility as well. She is safe to d/c home with assistance as needed. Frequency of Treatment Frequency Of Treatment Discharge Recommendations To Nursing Amount of Assist Needed Independent Discharge Recommendations PT Discharge Recommendations Home with Assistance Transportation Needs at Discharge Private Vehicle
--- NOTE | 2020-05-21 11:12 | PC.NURSE ---
PATIENT DC HOME AFTER CLEARED BY PHYSICAL THERAPY AND OT. PATIENT REPORTS EXCELLENT PAIN CONTROL. TRUPTI [place]. SPOUSE HERE TO TAKE HER HOME. [employer] PASS PROVIDED. SCRIPTS ELECTRONICALLY SENT. PATIENT HAS HER F/U APPT SCHEDULED. 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
== END 2020-05-21 10:30 | disposition home or self-care (01) | DRG 473 ==
PROVIDERS: Admitting Provider Orthopaedic Surgery; PCP Family Medicine; Referring Provider Family Medicine; Visit Provider Orthopaedic Surgery
PROC: 0RG20A0 Fusion of 2 or more Cervical Vertebral Joints with Interbody Fusion Device, Anterior Approach, Anterior Column, Open Approach (ICD-10-PCS; principal; 2020-05-20 13:15)
DX: T84.028A Dislocation of other internal joint prosthesis, initial encounter (principal); G47.30 Sleep apnea, unspecified; I10 Essential (primary) hypertension; E11.9 Type 2 diabetes mellitus without complications; J45.909 Unspecified asthma, uncomplicated; Z01.812 Encounter for preprocedural laboratory examination; Z11.59 Encounter for screening for other viral diseases
CPT/HCPCS: 72040; 76000; 82962; 87635; 97161; 97165; C1776; J0330; J1100; J1170; J2405; J2704; J3010

== ENCOUNTER → 2021-01-06 09:32 | Outpatient (CLI) | payer MEDICARE, OTHER, SELFPAY ==
[2020-05-20 15:29] VITALS: BMI 30.2
--- NOTE | 2021-01-06 18:42 | DI.NM.S_ITS ---
DATE OF SERVICE: 01/06/2021 PROCEDURE PERFORMED: Pharmacologic vasodilator stress and rest myocardial perfusion imaging with gating to assess ejection fraction and regional wall motion. ORDERING PROVIDER: Dr. Azra Gonzalez. INDICATIONS: The patient is an 80-year-old female recently evaluated for dizziness and ventricular bigeminy PVCs. CARDIAC STRESS: Per protocol, 0.4 mg of regadenoson was infused, augmented by walking on the treadmill. With this, she developed moderate dyspnea and some leg heaviness, but no chest discomfort. Her resting ECG is normal. With stress, there are no significant ST-segment shifts. She had rare isolated PVCs in recovery, but no other arrhythmias. Per protocol, 25.6 millicuries of technetium-99m Myoview was injected and she was imaged 20 minutes later using a gated SPECT acquisition protocol. Earlier in the day while at rest, she had been injected with 12.1 mg millicuries of technetium-99m Myoview and was imaged 30 minutes later, again using a gated SPECT acquisition protocol. FINDINGS: 1. Raw data: There is fairly good myocardial tracer uptake. Lung/heart ratio is normal at 0.25 with a normal TID ratio of 0.96. 2. Quantitated gated SPECT: Post-stress ejection fraction is estimated at 83% without any focal wall motion abnormalities. Resting ejection fraction is 70% with a normal end-diastolic volume of 96 mL. 3. Myocardial perfusion imaging: Post stress supine images shows a fairly normal perfusion pattern with mildly reduced counts in the proximal inferior wall that resolves on prone imaging, consistent with diaphragmatic attenuation artifact. There are no concerning perfusion defects. The resting images show an identical perfusion pattern without any clear areas of improvement. IMPRESSION: 1. Normal myocardial perfusion study. 2. Subtle fixed proximal inferior defect that resolved on prone imaging, consistent with diaphragmatic attenuation artifact. There were no concerning perfusion defects for ischemia or previous myocardial infarction. 3. Normal left ventricular systolic function without any focal wall motion abnormality. 4. No angina or ECG evidence of ischemia with pharmacologic vasodilator stress. She had occasional isolated PVCs in recovery, but no other arrhythmias. Sania Cameron - LESLEY/brianne/cynthia doc#: [id number]/job#: [id number] dd: 01/06/2021 16:45:00 dt: 01/06/2021 18:31:00 DICTATING MD/COPIES TO: Basilio Adkins MD; Azra Gonzalez M.D. COPIES MNE: LAZARO;
== END ==
PROVIDERS: PCP Family Medicine; Referring Provider Family Medicine; Visit Provider Family Medicine
DX: R06.00 Dyspnea, unspecified (principal); R55 Syncope and collapse; R94.31 Abnormal electrocardiogram [ECG] [EKG]
CPT/HCPCS: 78452; 93017; A9502; J2785

== ENCOUNTER → 2021-01-21 14:41 | Outpatient (CLI) | payer MEDICARE, OTHER, SELFPAY ==
[2020-05-20 15:29] VITALS: BMI 30.2
--- NOTE | 2021-01-21 14:43 | DI.ECHO.S_ITS ---
[facility] +---------+ : : [address] : : : : [id number] : : : : Phone: [phone]+ Echocardiogram Report + + :Name: JANETTE FARR Study Date: 01/21/2021 Height: 61 in : :[facility] ReadingLocation: Weight: 160 lb : : Gender: Female BSA: 1.7 m2 : :: 1940 Age: 80 yrs BP: 166/80 mmHg: :Reason For Study: DYSPNEA : : Performed By: Hector Costello : :Referring: MIREILLE WILKES K : + + Interpretation Summary 1) Normal left ventricular thickness, size, wall motion, and systolic function (EF 60-65%). 2) Normal right ventricular size and function. 3) No significant valvular abnormalities. 4) The right ventricular systolic pressure is estimated to be at least 21 mmHg based on an estimated right atrial pressure of 3 mm Hg.\ 5) No prior Echo available for comparison. Procedure: A two-dimensional transthoracic echocardiogram with color flow and Doppler was performed. The study quality was technically adequate. There is no prior echocardiogram noted for this patient. The patient was in normal sinus rhythm during the exam. Left Ventricle: The left ventricle is normal in size. There is normal left ventricular wall thickness. The ejection fraction is estimated to be 60-65%. There are no focal wall motion abnormalities. Diastolic parameters suggest a relaxation abnormality of the left ventricle, consistent with probable normal filling pressures. Right Ventricle: The right ventricle is normal in size and function. Atria: The left atrium is mildly dilated. Right atrial size is normal. There is no Doppler evidence for an atrial septal defect. Mitral Valve: The mitral valve is normal in structure and function. There is trace mitral regurgitation. Aortic Valve: The aortic valve is trileaflet. The aortic valve opens well. There is no aortic valve stenosis. No aortic regurgitation is present. Tricuspid Valve: The tricuspid valve is normal in structure and function. There is trace tricuspid regurgitation. The right ventricular systolic pressure is estimated to be at least 21 mmHg based on an estimated right atrial pressure of 3 mm Hg. Pulmonic Valve: The pulmonic valve is not well visualized. Great Vessels: The aortic root is normal size. The dimensions of the ascending aorta are normal. The pulmonary artery is normal size. The IVC is of normal diameter and collapses greater than 50% with a sniff. This suggests a low right atrial pressure of 3 mm Hg. Pericardium/ Pleura There is no pericardial effusion. There is no pleural effusion. MMode/2D Measurements & Calculations LVIDd: 4.2 cm LVOT diam: 2.1 cm LVIDs: 2.5 cm Ao root diam: 3.3 cm FS: 39.9 % asc Aorta Diam: 2.7 cm EPSS: 0.93 cm Ao Arch Diam (Prox Trans): 2.5 cm IVSd: 0.90 cm LVPWd: 1.0 cm LV cevrantes. diameter/BSA (cm/m^2): 2.5 LV sys. diameter/BSA (cm/m^2): 1.5 LA dimension: 3.0 cm RA long axis: 5.3 cm LA A2 area: 21.9 cm2 RA area: 16.3 cm2 LA A4 area: 17.0 cm2 RA vol: 42.4 ml LA length (vol): 4.8 cm RA : 24.7 ml/m2 LA vol: 65.3 ml IVC diam: 1.5 cm LA vol index: 38.0 ml/m2 RVD1 (basal): 3.5 cm RVD2 (mid): 3.8 cm TAPSE: 1.8 cm Doppler Measurements & Calculations Ao V2 max: 151.0 cm/sec LVOT Max Galen: 94.5 cm/sec Ao V2 mean: 116.2 cm/sec LV V1 max P.6 mmHg Ao max P.1 mmHg LV V1 VTI: 20.4 cm Ao mean P.8 mmHg HOLLY(I,D): 2.4 cm2 Ao V2 VTI: 30.1 cm HOLLY(V,D): 2.2 cm2 sev ratio: 0.68 HOLLY indexed to BSA (cm^2/m^2): 1.4 MV E max galen: 53.6 cm/sec TR max galen: 213.6 cm/sec Med Peak E' Galen: 5.6 cm/sec TR max P.3 mmHg E/E' med: 9.5 PA V2 max: 70.2 cm/sec Lat Peak E' Galen: 5.6 cm/sec PA V2 mean: 58.3 cm/sec E/E' lat: 9.7 PA mean P.4 mmHg E/e' average: 9.6 PA pr(Accel): 56.7 mmHg MV dec time: 0.31 sec SVLVOT): 73.1 ml Reading Physician:04:45 PM
== END ==
PROVIDERS: PCP Family Medicine; Referring Provider Family Medicine; Visit Provider Family Medicine
DX: R06.00 Dyspnea, unspecified (principal)
CPT/HCPCS: 93306

== ENCOUNTER → 2022-04-22 09:56 | Outpatient (CLI) | payer MEDICARE, OTHER, SELFPAY ==
[2020-05-20 15:29] VITALS: BMI 30.2
--- NOTE | 2022-04-22 10:01 | DI.MRI.S_ITS ---
PROCEDURE: MR HIP RT WO CON INDICATIONS: RIGHT HIP PAIN TECHNIQUE: Noncontrast coronal T1 spin echo and STIR through the bony pelvis. Coronal and axial T2 fast spin echo with fat saturation, sagittal T1 spin echo, and oblique axial T2 fast spin echo with fat saturation through the hip. COMPARISON: None. FINDINGS: Image quality: Excellent. Bones and joints: Periarticular osteophyte formation at the right hip joint. Bone marrow of the pelvic ring and proximal femurs show normal signal throughout. No intraosseous lesions or fractures. No avascular necrosis of the femoral heads. The visualized lower lumbar spine appears normally aligned. Tendons and ligaments: The gluteus medius and minimus tendons appear intact, without associated muscle atrophy. The nearby proximal iliotibial band also appears intact. The iliopsoas tendon appears intact, without adjacent bursal fluid collections or evidence for impingement syndrome. The origin of the hamstring tendon demonstrates mild internal T2 signal elevation.. The straight and reflected heads of the rectus femoris muscle origin appear intact, as well as the conjoint tendon. The ligamentum teres appears intact where visualized. Labrum and cartilage: There is diffuse undercutting of the glenoid labrum with a small paralabral cyst posteriorly. Cartilage surface of the femoral head appears of normal thickness. The alpha angle of the femur is within normal limits at less than 55 degrees. Soft tissues: Visualized muscles demonstrate normal bulk and internal signal. Quadratus femoris muscle demonstrates no internal edema to suggest ischiofemoral impingement. The proximal sciatic neurovascular bundle appears normal adjacent to the hamstring tendons. No free pelvic fluid. Bladder wall thickness is normal. Genitourinary structures and bowel loops appear normal where visualized. IMPRESSION: 1. 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 2. Mild right ischiitis. Dictated by: Cecily Zepeda M.D. on 04/24/2022 at 8:31 Approved by: Cecily Zepeda M.D. on 04/24/2022 at 8:33
== END ==
PROVIDERS: PCP Family Medicine; Referring Provider Orthopaedic Surgery; Visit Provider Orthopaedic Surgery
DX: M16.11 Unilateral primary osteoarthritis, right hip (principal); S73.191A Other sprain of right hip, initial encounter; M25.551 Pain in right hip
CPT/HCPCS: 73721

== ENCOUNTER → 2023-02-27 13:40 | Outpatient (CLI) | payer MEDICARE, OTHER, SELFPAY ==
[2020-05-20 15:29] VITALS: BMI 30.2
--- NOTE | 2023-02-27 13:46 | DI.MRI.S_ITS ---
PROCEDURE: MR LUMBAR SPINE WO/W CON INDICATIONS: BACK PAIN TECHNIQUE: Noncontrast sagittal T1 spin echo and T2 fast spin echo, sagittal STIR, axial T1 and T2 fast spin echo through the lumbar spine. In cases with scoliosis, additional coronal T2 fast spin echo may be performed. After the administration of contrast, sagittal and axial T1 spin echo with fat saturation through the lumbar spine. COMPARISON: Outside Film, MR, MR LUMBAR SPINE WITHOUT CONTRAST, 07/04/2014, 14:45. [facility], MR, L-SPINE WITHOUT CONTRAST, 02/01/2016, 13:15. Outside Film, CR, XR LUMBAR SPINE 2 OR 3 VIEWS, 02/07/2023, 8:23. FINDINGS: Image quality: There is artifact associated with the metallic hardware. This examination is limited by involuntary motion artifact. Alignment and curvature: Mild levoconvex scoliotic curvature is noted. Minimal retrolisthesis can be seen at T11-T12, L1-L2, L2-L3, and L3-L4. Mild grade 1 anterolisthesis is seen at L4-L5. Marrow: Marrow is of normal overall signal. No acute vertebral body compression fractures. No suspicious marrow enhancement. Spinal cord: Conus medullaris terminates at the L1 level. Visualized spinal cord demonstrates normal signal, without suspicious enhancement. Paraspinous soft tissues: No paravertebral masses or abnormal enhancement. T11-T12: Moderate loss of disc height is seen. Moderate disc bulge is seen, which is eccentric to the left, with a central/left disc protrusion. Mild facet joint hypertrophy is seen. There is moderate left-sided and no right-sided neural foraminal narrowing. Mild central canal narrowing is seen. These imaging findings have progressed compared to the prior study. T12-L1: Bzos-sc-gkssimhj loss of disc height and disc signal can be seen. Mild to moderate disc bulge is seen, which is eccentric to the left. Mild to moderate facet hypertrophy is seen. There is moderate left-sided and no right-sided neural foraminal narrowing. Mild central canal narrowing is seen. These degenerative changes are worse than in 2016. L1-L2: Moderate to severe loss of disc height and disc signal can be seen. Reactive marrow endplate changes are seen which are hypointense on T1-weighted imaging and hyperintense on T2 weighted imaging, which is most consistent with edema (Modic type I changes). Associated enhancement can be seen at the endplates, which is attributed to degenerative enhancement. Moderate generalized disc bulge is seen. There is a superimposed central disc protrusion. Partially bridging anterior osteophytes are seen. There is at least moderate right-sided and moderate left-sided neural foraminal narrowing. Moderate central canal narrowing is seen. These imaging findings have progressed compared to the prior study. L2-L3: Moderate to severe loss of disc height and disc signal can be seen. At least moderate disc bulge is seen, with a central disc protrusion. Moderate facet joint hypertrophy is seen. Apparent prior left hemilaminectomy change is seen. There is moderate to severe bilateral neural foraminal narrowing seen at this level, right worse than left. There is a degree of compression seen upon the exiting nerve roots. Moderate central the degree of central canal narrowing is improved compared to 2016. L3-L4: The disc height is well-preserved. Loss of disc signal is seen at this level. Mild to moderate disc bulge is seen. Moderate facet joint hypertrophy is seen. There is a degree of compression seen upon the exiting nerve roots. No significant central canal narrowing is seen. The degree of central canal narrowing is improved compared to 2016. L4-L5: Postoperative changes are seen at this level, with bilateral pedicle screws, vertical fixation rods, and a disc spacer. There has been removal of portions of the posterior elements. Moderate generalized disc bulge is seen. Mild to moderate facet hypertrophy is seen. There is ooqp-gd-pkdubwrd left-sided and moderate right-sided neural foraminal narrowing. No central canal narrowing is seen. This level is clearly improved compared to 2016. L5-S1: Moderate loss of disc height is seen. Loss of disc signal is seen. Moderate disc bulge is seen, which is eccentric to the left side. Mild facet joint hypertrophy is seen. There is at least moderate left-sided neural foraminal narrowing, with a degree of compression upon the exiting left L5 nerve root. Moderate right-sided neural foraminal narrowing is seen. Mac VIII central these degenerative changes are mildly progressed compared to 2016. IMPRESSION: Numerous sites of postoperative change are seen, with improvement compared to 2016. Elsewhere, the degenerative changes are progressed. Dictated by: Yossi Long M.D. on 02/27/2023 at 15:44 Approved by: Yossi Long M.D. on 02/27/2023 at 15:51
== END ==
PROVIDERS: PCP Student in an Organized Health Care Education/Training Program; Referring Provider Student in an Organized Health Care Education/Training Program; Visit Provider Student in an Organized Health Care Education/Training Program
DX: M47.816 Spondylosis without myelopathy or radiculopathy, lumbar region (principal); M47.817 Spondylosis without myelopathy or radiculopathy, lumbosacral region; M54.50 Low back pain, unspecified
CPT/HCPCS: 72158

== ENCOUNTER 2023-04-11 09:10 | Outpatient (CLI) | payer MEDICARE, OTHER, SELFPAY ==
[2020-05-20 15:29] VITALS: BMI 30.2
[2023-04-11] VITALS (8 sets, daily range): BP systolic 149–190; BP diastolic 68–87; PULSE 53–66; RESP 12–21; TEMP 36.6; O2SAT 95–99
--- NOTE | 2023-04-11 09:14 | DI.RAD.S_ITS ---
PROCEDURE: PAIN L INTERLAMINAR/CAUDAL INJ INDICATIONS: LUMBAR RADICULOPATHY COMPARISON: None. FINDINGS: Fluoroscopic spot filming was performed to verify placement of spinal needles, as labeled on the films. Appropriate location(s) of the needle tip(s) was confirmed by injection of iodinated contrast. IMPRESSION: Intraprocedural fluoroscopy was provided for guidance and anatomical localization. Please see the procedure report for further details. Dictated by: Herminio Bolanos M.D. on 04/11/2023 at 16:13 Approved by: Herminio Bolanos M.D. on 04/11/2023 at 16:13
[2023-04-11] MEDS: MIDAZOLAM 2 MG/2 ML VIAL 1 MG IV (09:45)
[2023-04-11] MEDS: methylPREDNISolone acetate 80 MG/ML VIAL INJ (09:47)
[2023-04-11] MEDS: IOPAMIDOL 15 ML VIAL 3 ML INJ (09:48)
[2023-04-11] MEDS: BUPIVACAINE 0.25% (PF) VIAL 2 ML INJ (09:48)
--- NOTE | 2023-04-11 10:02 | P.PCN_ITS ---
Date/Time/Diagnoses Date of procedure: 04/11/23 Time of procedure: 10:00 Procedure Notes Physician: Kerwin Gill Total Fluoroscopy time (seconds): 10 Total sedation minutes: 11 Procedure in detail & Post-procedure care: Caudal Epidural Steroid Injection Indications: Dayanna is presenting for treatment of lumbar radiculopathy with low back and leg pain. Preoperative diagnosis: Bilateral lumbar radiculopathy Postoperative diagnosis: Same Focused Examination: Ax3 Mood and affect are normal Vital Signs: VSS ASA: 2 Consent: Following review of allergies and potential side effects/complications, including, but not necessarily limited to, infection, allergic reaction, local tissue breakdown, stroke, temporary or permanent nerve injury, paralysis, and possible , the patient indicated that they understood and agreed to procee d.? An informed consent document was signed by the patient, witnessed by a nurse and placed in the patient's chart.? Additionally, other treatment options including medications and physical therapy were reviewed with the patient. All questions were answered. Site was then marked. Anesthesia: After review of previous anesthetic history and IV conscious sedation, the patient was deemed safe to proceed with today's procedure with IV conscious sedation. IV sedation was accomplished with midazolam 1 mg administered by the RN after order by Dr. Gill. Sedation was titrated to patient comfort during the course of the procedure. Patient remained responsive to all verbal commands. Position: Prone Monitoring: NIBP, Pulse oximetry, 3 lead EKG Needle used: 17 gauge Touhy with 19 gauge TheraCath Epidural Catheter Contrast: Isovue 300-M 2mL Injectate: Depomedrol 80mg with 0.25% bupivacaine 2 mL and normal saline 2 mL Technique: The skin was prepped with chloraprep and then draped in a sterile fashion. Time out was performed as per protocol. Oxygen applied via NC. The entry point for entering/approaching the epidural space by a caudal approach through the sacral hiatus was identified. Skin and subcutaneous structures of the needle entry site was then infiltrated with 3 mL of lidocaine 1%. Under AP and lateral control, the needle was guided through the sacral hiatus to the S3 level. The catheter was then advanced to L5-S1 using intermittent fluoroscopy. Contrast was then injected and the spread was consistent with the epidural space. There was no evidence for intravascular or intrathecal uptake. After negative aspiration, the above-mentioned injectate was then slowly administered and the needle withdrawn. The patient expressed no unusual discomfort or paresthesias during needle positioning or injection. Band-Aids applied to injection sites. EBL: less than 1 ml Complications: None Post Procedure: Patient was taken to the recovery and monitored. The patient was provided a Pain Log to continue to record the patient's response to the target- specific procedure prior to the patient's follow-up visit with the referring physician. Patient was stable upon discharge. Detailed post procedure instructions were provided. Patient was asked to call in the event of worsening pain, fever, weakness, numbness or bladder or bowel incontinence.
== END 2023-04-11 10:21 | disposition home or self-care (01) ==
PROVIDERS: PCP Student in an Organized Health Care Education/Training Program; Referring Provider Anesthesiology; Visit Provider Anesthesiology
DX: M54.16 Radiculopathy, lumbar region (principal); M48.061 Spinal stenosis, lumbar region without neurogenic claudication
CPT/HCPCS: 62323; 99152; J1040; J2250; J3490

== ENCOUNTER 2023-05-30 13:13 | Outpatient (CLI) | payer MEDICARE, OTHER, SELFPAY ==
[2020-05-20 15:29] VITALS: BMI 30.2
[2023-05-30] VITALS (7 sets, daily range): BP systolic 156–192; BP diastolic 66–85; PULSE 53–65; RESP 12–21; TEMP 36.3; O2SAT 97–98
--- NOTE | 2023-05-30 13:14 | DI.RAD.S_ITS ---
PROCEDURE: PAIN L/S TRANSFORAM INJECT CHELSEA COMPARISON: None. INDICATIONS: RADICULOPATHY FINDINGS: Intraprocedural fluoroscopy was provided for guidance and anatomical localization. Please see the procedure report for further details. IMPRESSION: Intraprocedural fluoroscopy was provided for guidance and anatomical localization. Please see the procedure report for further details. Dictated by: Herminio Bolanos M.D. on 05/30/2023 at 16:48 Approved by: Herminio Bolanos M.D. on 05/30/2023 at 16:49
--- NOTE | 2023-05-30 13:41 | P.PCN_ITS ---
Date/Time/Diagnoses Date of procedure: 05/30/23 Time of procedure: 14:00 Procedure Notes Physician: Kerwin Gill Total Fluoroscopy time (seconds): 33 Total sedation minutes: 0 Procedure in detail & Post-procedure care: Bilateral L2-3 Transforaminal Epidural Steroid Injection Indications: Dayanna is presenting for treatment of lumbar radiculopathy with low back and leg pain. Preoperative diagnosis: Lumbar radiculopathy Postoperative diagnosis: Same Focused Examination: Ax3 Mood and affect are normal Vital Signs: VSS Consent: Following review of allergies and potential side effects/complications, including, but not necessarily limited to, infection, allergic reaction, local tissue breakdown, stroke, temporary or permanent nerve injury, paralysis, and possible , the patient indicated that they understood and agreed to pr oceed.? An informed consent document was signed by the patient, witnessed by a nurse and placed in the patient's chart.? Additionally, other treatment options including medications and physical therapy were reviewed with the patient. All questions were answered. Site was then marked. Anesthesia: Local Position: Prone Monitoring: NIBP, Pulse oximetry, 3 lead EKG Needle used: 22G 5 inch spinal needle Contrast: Isovue 300M Injectate: 7.5 mg Dexamethasone mixed with 1% lidocaine 1 ml and normal saline 1 mL per site Technique: The skin was prepped with chloraprep and draped in a sterile fashion. Time out was performed as per protocol. Oxygen applied via NC. Skin and subcutaneous structures of the needle entry site were infiltrated with 3mL of lidocaine 1%. Under fluoroscopic guidance, using an ipsilateral oblique view,?a 22 gauge 5 inch needle was advanced to the base of the right L2?pedicle.? The needle was advanced to the superio-posterior aspect of the neural foramen under lateral view.? Oblique and AP views were rechecked. No paresthesias noted by the patient during needle placement. In AP view and utilizing real-time digital subtraction fluoroscopy, 2 ml contrast was slowly injected. Epidural spread was observed without evidence for intravascular nor intrathecal uptake. Contrast spread was seen craniocaudally. The above injectate was then administered, and t he needle was subsequently withdrawn. Skin and subcutaneous structures of the needle entry site were infiltrated with 3mL of lidocaine 1%. Under fluoroscopic guidance, using an ipsilateral oblique v iew,?a 22 gauge 5 inch needle was advanced to the base of the left L2?pedicle.? The needle was advanced to the superio-posterior aspect of the neural foramen under lateral view.? Oblique and AP views were rechecked. No paresthesias noted by the patient during needle placement. In AP view and utilizing real-time digital subtraction fluoroscopy, 2 ml contrast was slowly injected. Epidural spread was observed without evidence for intravascular nor intrathecal uptake. Contrast spread was seen craniocaudally. The above injectate was then administered, and the needle was subsequently withdrawn. Band-Aids applied to injection sites. EBL: less than 1 ml Complications: None Post Procedure: Patient was taken to the recovery and monitored. The patient was provided a Pain Log to continue to record the patient's response to the target- specific procedure prior to the patient's follow-up visit with the referring physician. Patient was stable upon discharge. Detailed post procedure instructions were provided. Patient was asked to call in the event of worsening pain, fever, weakness, numbness or bladder or bowel incontinence.
[2023-05-30] MEDS: DEXAMETHASONE 10 MG/ML VIAL 20 MG INJ (13:51)
[2023-05-30] MEDS: IOPAMIDOL 15 ML VIAL 3 ML INJ (13:52)
== END 2023-05-30 14:19 | disposition home or self-care (01) ==
PROVIDERS: PCP Student in an Organized Health Care Education/Training Program; Referring Provider Anesthesiology; Visit Provider Anesthesiology
DX: M54.16 Radiculopathy, lumbar region (principal)
CPT/HCPCS: 64483; 82962; J1100

== ENCOUNTER 2023-08-22 14:45 | Outpatient (CLI) | payer MEDICARE, OTHER, SELFPAY ==
[2020-05-20 15:29] VITALS: BMI 30.2
[2023-08-22] VITALS (8 sets, daily range): BP systolic 141–161; BP diastolic 67–89; PULSE 62–70; RESP 11–20; TEMP 36.3; O2SAT 97–100
--- NOTE | 2023-08-22 14:46 | DI.RAD.S_ITS ---
PROCEDURE: PAIN L/S FACET INJ/BLK 1ST CHELSEA INDICATIONS: SPONDYLOSIS COMPARISON: [facility], XA, PAIN L/S TRANSFORAM INJECT CHELSEA, 05/30/2023, 13:47. FINDINGS: Fluoroscopic spot filming was performed to verify placement of spinal needles on both sides along the course of the L5 nerve roots, as labeled on the films. Appropriate location of the needle tips was confirmed by injection of iodinated contrast. IMPRESSION: Intraprocedural examination demonstrating appropriate positions of the needles. Dictated by: Yossi Long M.D. on 08/23/2023 at 9:27 Approved by: Yossi Long M.D. on 08/23/2023 at 9:28
[2023-08-22] MEDS: MIDAZOLAM 2 MG/2 ML VIAL 1 MG IV (15:30)
[2023-08-22] MEDS: BUPIVACAINE 0.5% (PF) 10 ML VIAL 5 ML INJ (15:36)
[2023-08-22] MEDS: iopamidoL 15 ML VIAL 3 ML INJ (15:36)
--- NOTE | 2023-08-22 16:41 | P.PCN_ITS ---
Date/Time/Diagnoses Date of procedure: 08/22/23 Time of procedure: 15:30 Procedure Notes Physician: Kerwin Gill Total Fluoroscopy time (seconds): 9 Total sedation minutes: 11 Procedure in detail & Post-procedure care: Bilateral L5 Lumbar Medial Branch Blocks Indications: Dayanna is presenting for treatment of lumbar spondylosis with low back pain. Preoperative diagnosis: Lumbar spondylosis Postoperative diagnosis: Same Pre-procedure History: Patient demonstrates today moderate to severe non- radicular back pain without neurologic deficit aggravated by hyperextension yes Back pain greater than leg pain? yes Patient today has tenderness over the suspected joint(s) yes History of post-traumatic injury? no Hypertrophic arthropathy yes Back pain associated with suspected motion segment instability, hypermobility or pseudoarthrosis no Pre-testing pain score (VAS): 8/10 Focused Examination: Ax3 Mood and affect are normal Vital Signs: VSS ASA: 2 Consent: Following review of allergies and potential side effects/complications, including, but not necessarily limited to, infection, allergic reaction, local tissue breakdown, stroke, temporary or permanent nerve injury, paralysis, and possible , the patient indicated that they understood and agreed to proceed.? An informed consent document was signed by the patient, witnessed by a nurse and placed in the patient's chart.? Additionally, other treatment options including medications and physical therapy were reviewed with the patient. All questions were answered. Site was then marked. Anesthesia: After review of previous anesthetic history and IV conscious sedation, the patient was deemed safe to proceed with today's procedure with IV conscious sedation. IV sedation was accomplished with midazolam 1 mg administered by the RN after order by Dr. Gill. Sedation was titrated to patient comfort during the course of the procedure. Patient remained responsive to all verbal commands. Position: Prone Monitoring: NIBP, Pulse oximetry, 3 lead EKG Needle used: 22 ga 3.5 inch spinal needle Contrast: Isovue 300M Injectate: 0.5% Bupivacaine 1 mL per site Procedure: The patient was brought into the procedure room and positioned into the prone position. Skin was prepped with a Chloraprep solution, allowed to air dry, and then draped in sterile fashion.? The right L5-S1 facet joints were visually identified with fluoroscopy. Lidocaine 1% was used to anesthetize the skin over each target destination with a 25ga needle. A 22 ga, 3.5 inch spinal needle was advanced to the location of the medial branch at the junction of the superior articular process and the transverse process at the base of the SAP of the sacrum using intermittent fluoroscopy in the AP view. Isovue 300M contrast 0.2ml was injected at each level outlining the base of the SAP of the sacrum in the AP and lateral views. There was no evidence of vascular or intrathecal uptake. The above injectate was slowly injected at each target destination. The left L5-S1 facet joints were visually identified with fluoroscopy. Lidocaine 1% was used to anesthetize the skin over each target destination with a 25ga needle. A 22 ga, 3.5 inch spinal needle was advanced to the location of the medial branch at the junction of the superior articular process and the transverse process at the base of the SAP of the sacrum using intermittent fluoroscopy in the AP view. Isovue 300M contrast 0.2ml was injected at each level outlining the base of the SAP of the sacrum in the AP and lateral views. There was no evidence of vascular or intrathecal uptake. The above injectate was slowly injected at each target destination. At the end of the procedure the needles were withdrawn and Band-Aids were applied for a dressing. Post Procedure: Patient was taken to the recovery and monitored. The patient was provided a Pain Log to continue to record the patient's response to the target- specific procedure prior to the patient's follow-up visit with the referring physician. Patient was stable upon discharge. Detailed post procedure instructions were provided. Patient was asked to call in the event of worsening pain, fever, weakness, numbness or bladder or bowel incontinence. Postoperatively, today patient demonstrates the following changes with hyperextension and with tenderness over the suspected joint(s). Provacative testing using the Montejo's facet loading test Right side Left side Directly before the block ?VAS (0-10) = 8/10 VAS (0-10) = 8/10 5 minutes after the block VAS (0-10) = 3/10 VAS (0-10) = 3/10 Percentage relief obtained with this diagnostic block 63% 63% Any improved physical functioning directly after the blocks? Range of motion Based on the medial branches blocked today, if the patient meets insurance criteria for radiofrequency, the treatment should result in the denervation of the bilateral L5-S1 facet joint nerves. We would expect to denervate a total of 2 facets during the radiofrequency ablation.
== END 2023-08-22 16:05 | disposition home or self-care (01) ==
PROVIDERS: PCP Student in an Organized Health Care Education/Training Program; Referring Provider Anesthesiology; Visit Provider Anesthesiology
DX: M47.816 Spondylosis without myelopathy or radiculopathy, lumbar region (principal)
CPT/HCPCS: 64493; 99152; J2250

== ENCOUNTER 2023-10-10 14:42 | Outpatient (CLI) | payer MEDICARE, OTHER, SELFPAY ==
[2020-05-20 15:29] VITALS: BMI 30.2
[2023-10-10] VITALS (7 sets, daily range): BP systolic 135–175; BP diastolic 62–86; PULSE 34–62; RESP 14–18; TEMP 36.2; O2SAT 95–100
--- NOTE | 2023-10-10 15:30 | DI.RAD.S_ITS ---
PROCEDURE: PAIN L/S FACET INJ/BLK 1ST [place] INDICATIONS: SPONDYLOSIS COMPARISON: [facility], , PAIN L/S FACET INJ/BLK 1ST [place], 08/22/2023, 15:29. FINDINGS: Fluoroscopic spot filming was performed to verify placement of spinal needles at the right T12, L1 and L2 level(s), as labeled on the films. Partially visualized L4 posterior fusion hardware. IMPRESSION: Fluoroscopic image demonstrates spinal needles at right T12, L1 and L2 levels. Please see procedure report for details. Dictated by: Tena Prado M.D. on 10/10/2023 at 21:25 Approved by: Tena Prado M.D. on 10/10/2023 at 21:26
--- NOTE | 2023-10-10 15:48 | PC.NURSE ---
Patient arrived in NAD. BP stable 151/83 Sp02 97%. HR via Sp02 monitor noted to be 34 consistently. Patient placed on telemetry with matching rate. Pulse strong with a rate of 34-40's with frequent pauses felt and visualized on telemetry as well as PVC's. Patient c/o dizziness associated with the pauses and bradycardic episodes. Rhythm unspecified bradycardia with pauses and occasional appearance of 3rd degree heart block. Dr. Gill made aware, order for EKG initiated. Patient remains in NAD, awake and alert with intermittent dizziness. She reports being seen recently in the emergency room for the same symptomatic bradycardia episodes with c/o dizziness and a resulting heart monitor has been ordered for her to wear that is supposed to arrive tomorrow.
[2023-10-10] MEDS: BUPIVACAINE 0.5% (PF) 10 ML VIAL 5 ML INJ (16:39)
[2023-10-10] MEDS: iopamidoL 15 ML VIAL 3 ML INJ (16:39)
--- NOTE | 2023-10-10 16:52 | P.PCN_ITS ---
Date/Time/Diagnoses Date of procedure: 10/10/23 Time of procedure: 16:00 Procedure Notes Physician: Kerwin Gill Total Fluoroscopy time (seconds): 21 Total sedation minutes: 0 Procedure in detail & Post-procedure care: Bilateral T12, L1, 2 Lumbar Medial Branch Blocks Indications: Dayanna is presenting for treatment of lumbar spondylosis with low back pain. Preoperative diagnosis: Lumbar spondylosis Postoperative diagnosis: Same Pre-procedure History: F Patient demonstrates today moderate to severe non- radicular back pain without neurologic deficit aggravated by hyperextension yes Back pain greater than leg pain? F yes Patient today has tenderness over the suspected joint(s) yes History of post-traumatic injury? no Hypertrophic arthropathy F yes Back pain associated with suspected motion segment instability, hypermobility or pseudoarthrosis no Focused Examination: Ax3 Mood and affect are normal Vital Signs: VSS ASA: 3 Consent: Following review of allergies and potential side effects/complications, including, but not necessarily limited to, infection, allergic reaction, local tissue breakdown, stroke, temporary or permanent nerve injury, paralysis, and possible , the patient indicated that they understood and agreed to proceed.? An informed consent document was signed by the patient, witnessed by a nurse and placed in the patient's chart.? Additionally, other treatment options including medications and physical therapy were reviewed with the patient. All questions were answered. Site was then marked. Anesthesia: Local Position: Prone Monitoring: NIBP, Pulse oximetry, 3 lead EKG Needle used: 25 ga 3.5 inch spinal needle Contrast: Isovue 300M Injectate: 0.5% bupivacaine 1 mL per site Procedure: The patient was brought into the procedure room and positioned into the prone position. Skin was prepped with a Chloraprep solution, allowed to air dry, and then draped in sterile fashion.? The right L1-2 and L2-3 facet joints were visually identified with fluoroscopy. Lidocaine 1% was used to anesthetize the skin over each target destination with a 25ga needle. A 25 ga, 3.5 inch spinal needle was advanced to the location of the medial branch at the junction of the superior articular process and the transverse process at L1,2,3 using intermittent fluoroscopy in the AP view. Isovue 300M contrast 0.2ml was injected at each level outlining the medial borders for each level in the AP and lateral views. There was no evidence of vascular or intrathecal uptake. The above injectate was slowly injected at each target destination. The left L1-2 and L2-3 facet joints were visually identified with fluoroscopy. Lidocaine 1% was used to anesthetize the skin over each target destination with a 25ga needle. A 25 ga, 3.5 inch spinal needle was advanced to the location of the medial branch at the junction of the superior articular process and the transverse process at L1,2,3 using intermittent fluoroscopy in the AP view. Isovue 300M contrast 0.2ml was injected at each level outlining the medial borders for each level in the AP and lateral views. There was no evidence of vascular or intrathecal uptake. The above injectate was slowly injected at each target destination. At the end of the procedure the needles were withdrawn and Band-Aids were applied for a dressing. Post Procedure: Patient was taken to the recovery and monitored. The patient was provided a Pain Log to continue to record the patient's response to the target-specific procedure prior to the patient's follow-up visit with the referring physician. Patient was stable upon discharge. Detailed post procedure instructions were provided. Patient was asked to call in the event of worsening pain, fever, weakness, numbness or bladder or bowel incontinence. Based on the medial branches blocked today, if the patient meets insurance criteria for radiofrequency, the treatment should result in the denervation of the bilateral L1-2 and L2-3 facet joint nerves. We would expect to denervate a total of 4 facets during the radiofrequency ablation.
--- NOTE | 2023-10-10 17:07 | PC.NURSE ---
Patient was advised to f/u with her PCP and air pumper in regards to her heart rate/rhythm. Patient advised to seek care at ER if experiences any SOB, chest pain, dizziness or lightheaded. Patient has no questions or concerns at this time.
== END 2023-10-10 17:08 | disposition home or self-care (01) ==
LOC: RAD 14:44
PROVIDERS: PCP Student in an Organized Health Care Education/Training Program; Referring Provider Anesthesiology; Visit Provider Anesthesiology
DX: R00.1 Bradycardia, unspecified (principal); M47.816 Spondylosis without myelopathy or radiculopathy, lumbar region
CPT/HCPCS: 64493; 64494; 93005

== ENCOUNTER → 2024-06-01 09:43 | Outpatient (CLI) | payer MEDICARE, OTHER, SELFPAY ==
[2020-05-20 15:29] VITALS: BMI 30.2
--- NOTE | 2024-06-01 | DI.MRI.S_ITS ---
PROCEDURE: MR THORACIC SPINE WO CON INDICATIONS: thoracic stenosis TECHNIQUE: Noncontrast sagittal T1 spine echo and T2 fast spin echo, sagittal STIR, and T2 fast spin echo through the thoracic spine. COMPARISON: None. FINDINGS: Image quality: This examination is limited by involuntary motion artifact. Alignment and Curvature: Accentuated thoracic kyphosis is seen. No focal AP alignment abnormality is seen. Bone Marrow: Marrow is of normal overall signal. No acute vertebral body compression fractures. Spinal Cord: Visualized spinal cord is normal in size and signal. Paraspinous Soft Tissues: No paravertebral masses. Miscellaneous: At the T5-T6 level, there is moderate loss of disc height seen. Mild disc bulge is seen, with minimal central canal narrowing. Mild bilateral neural foraminal narrowing is seen. At the T6-T7 level, there is [id number] disc space narrowing seen. Mild disc bulge is seen, with minimal central canal narrowing. No significant neural foraminal narrowing can be seen. At the T9-T10 level, moderate loss of disc height and disc signal can be seen. Mild disc bulge is seen, with mild central canal narrowing. There is moderate right-sided neural foraminal narrowing seen at this level. At T10-T11, there is moderate disc bulge seen, with mild central canal narrowing. Moderate left-sided neural foraminal narrowing is seen at this level. At T11-T12, there is mild disc bulge seen, with a mild central/left disc protrusion. There is moderate left-sided and no significant right-sided neural foraminal narrowing. Mild central canal narrowing is seen. Focal degenerative change is seen at the L1-L2 level, with at least moderate loss of disc height and disc signal. At least moderate disc bulge is seen, which is eccentric to the right. There is a central disc osteophyte protrusion seen. There is at least moderate right-sided and mild left-sided neural foraminal narrowing. Moderate central canal narrowing is seen. Milder degenerative changes are seen elsewhere. 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 Accentuated thoracic kyphosis is seen. Dictated by: Yossi Long M.D. on 06/02/2024 at 16:44 Approved by: Yossi Long M.D. on 06/02/2024 at 16:48
== END ==
PROVIDERS: PCP Student in an Organized Health Care Education/Training Program; Referring Provider Pain Medicine Pain Medicine; Visit Provider Pain Medicine Pain Medicine
DX: M96.1 Postlaminectomy syndrome, not elsewhere classified (principal); M47.814 Spondylosis without myelopathy or radiculopathy, thoracic region; M47.816 Spondylosis without myelopathy or radiculopathy, lumbar region; M40.204 Unspecified kyphosis, thoracic region
CPT/HCPCS: 72146